=== PATIENT | male | born 2000 | race African-American/Black ===

== ENCOUNTER → 2019-08-31 | Outpatient (CLI) | payer OTHER ==
--- NOTE | 2019-08-31 14:25 | REP ---
REASON: Lower extremity pain. Possible mike splints versus stress fracture. After the intravenous administration of 22.0 millicuries technetium 99m MDP, a triple phase bone scan of the lower extremities was obtained. No abnormal increase or decreased radionuclide accumulation is seen in either lower extremity on the flow portion of the examination. Blood pool imaging shows no evidence of abnormal increased or decreased radionuclide accumulation seen on either side. 2-hour delayed imaging shows a focus of increased radionuclide accumulation seen in the proximal right tibia medially and two foci possibly three of increased radionuclide accumulation seen in the mid and proximal left tibia medially. In addition, there is a focus of increased radionuclide accumulation seen in the left proximal fibula. IMPRESSION: Bilateral multifocal stress fractures as described above which are at least of 6-8 weeks of age. Electronically Signed by Anant Hernández DO 08/31/2019 05:19 P
== END ==
LOC: M RAD 10:08
PROVIDERS: ATTEND Physician Assistant
DX: M79.661 Pain in right lower leg (principal); M79.662 Pain in left lower leg